=== PATIENT | male | born 1990 | race African-American/Black ===

== ENCOUNTER 2018-12-05 07:02 | Emergency (ER) | payer OTHER ==
[~2018-12-05] VITALS: Ht 188 cm; Wt 81.7 kg
[2018-12-05 07:03] VITALS: BP 137/77
== END 2018-12-05 07:30 | disposition home or self-care (01) ==
LOC: ER 07:02
DX: J30.9 Allergic rhinitis, unspecified (principal); F17.220 Nicotine dependence, chewing tobacco, uncomplicated